=== PATIENT | female | born 1940 | race Caucasian/White ===

== ENCOUNTER 2019-05-13 09:31 | Day surgery (SDC) | payer MEDICARE ==
[~2019-05-13] VITALS: Ht 149.9 cm; Wt 68.9 kg
[~2019-05-13 09:31] MED LIST: ADLT ASA LOW81 MG PO; ASPIRIN CHEWABL81 MG OR; ASPIRIN81 MG PO; CIPROFLOXACN500 MG PO; GLIMEPIRIDE1 MG PO; LIPITOR20 M1 PO; LISINOP/HCTZ1 TA1 PO; LISINOP/HCTZ1 TAB; LISINOPRIL20 MG PO; LIVALO2 MG PO; METFORMIN500 MG PO; MULTI FOR HER 50+ PO; MULTI VIT PO; TRADJENTA5 MG PO; VERAPAMIL240 M1 PO; VERAPAMIL80 M1 OR; ZOLOFT50 MG PO; [UNRECOGNIZED DRUG - OTHER]
[2019-05-13 12:59] VITALS: BP 110/56
== END 2019-05-13 12:55 | disposition home or self-care (01) ==
LOC: ENDO 09:31 → ORM 10:00 → ENDO 10:00
PROVIDERS: ATTEND Surgery
PROC: 0DBH8ZX Excision of Cecum, Via Natural or Artificial Opening Endoscopic, Diagnostic (ICD-10-PCS; principal; 2019-05-13)
PROC: 0DBP8ZX Excision of Rectum, Via Natural or Artificial Opening Endoscopic, Diagnostic (ICD-10-PCS; 2019-05-13)
PROC: 0DBF8ZX Excision of Right Large Intestine, Via Natural or Artificial Opening Endoscopic, Diagnostic (ICD-10-PCS; 2019-05-13)
DX: Z12.11 Encounter for screening for malignant neoplasm of colon (principal); K64.8 Other hemorrhoids; K62.6 Ulcer of anus and rectum; E11.9 Type 2 diabetes mellitus without complications; I10 Essential (primary) hypertension; Z85.048 Personal history of other malignant neoplasm of rectum, rectosigmoid junction, and anus; Z86.010 Personal history of colon polyps